=== PATIENT | female | born 1965 | race Caucasian/White ===

== ENCOUNTER 2017-05-10 14:00 | Outpatient (RCR) ==
--- NOTE | 2017-04-18 13:37 | RS.OPPTEV2 ---
Date of Note: 04/18/17 Visit #: 1 Date of Evaluation: 04/18/17 Payer Source: Insurance Treatment Diagnosis: Right LE symptoms, low back pain History of Condition/Mechanism of Injury:: Patient reports problems with her back since 2000. She had lumbar spinal fusion in 2000. Reports progressive right LE symptoms. Constant numbness has been in the right anterior thigh since February 2017. Prior Level of Function.....Patient was independent with: ADL's, Self Care, Caregiving, Ambulation/Mobility, Community Integration/Access Functional Limitations: Sleep, ADL's, Lifting, Sitting, Standing, Bending, Ambulation, Community Access/Integration Current Subjective/complaints:: Patient reports constant right LE symtpoms of numbness and hypersensitivity. States this is in the lateral, anterior, and medial right thigh. Reports no symptoms below the right knee. Also reports no symptoms in the left LE. States if she is on her feet a lot, she will notice weakness in the right LE. States she feels tightness in the low back. She was active with attending Yoga classes up until the last two months due to her symptoms. States the right LE radiating symptoms became constant following a Yoga class on February 19, 2017. Reports sleep is interrupted. States she has to change positions frequently. Medical History Medical History: Arthritis Surgical History: Hysterectomy Surgical History Comments:: Lumbar spinal fusion L4-5 and L5-S1 in 2000, Neck fusion with age hardware at C5-7 in 2008. Hx Home Medications: Hydrocodone, Flexeril, Imitrex, Ibuprofen Patient's Goals: Her goal is to get relief of right LE symptoms. Pain Assessment - Pain Description Pain Location: tightness in low back Current Pain Intensity: not quantified Functional Outcome Measure LE Functional Scale: 18 (18/80=77.5% impairment) - G Codes & Severity Modifier G Codes & Modifier: NA Source of G Code score: NA Observation - Observation Posture: Forward Head, Rounded Shoulders, Decreased Lumbar Lordosis Comments: Stands avoiding weight on right leg, with right knee slightly flexed. Gait - Gait Pattern Gait Comments: Ambulates independently with decreased stance on the right LE and maintains flexion at the knee during heel stike and foot flat. - ROM Lumbar Flexion: Hand reach to Mid-Shins Sidebending to Left: Reach to Lateral Joint Line Sidebending to Right: Reach to Lateral Joint Line Comments: Lumbar extension is 50% of normal range. Demonstrates hypomobility of the lumbar spine with lumbar flexion. - Strength Trunk Rotation: 4- Good- Comments: Left LE 5/5 throughout. Right hip flexion and ER 4-5, all else of right hip 4/5. Right quads and HS and ankle DF 4/5. - Special Tests DAMARIS Test: Negative Left, Negative Right SLR Test: Negative Left, Negative Right Seated Dural Stretch Test: Negative Left, Negative Right SI Joint Compression: Negative SI Joint Distraction: Negative Palpation Comments:: Patient reports no tenderness throughout the lumbar paraspinals, with central PA's along the lumbar spine to sacrum, or to either SI joint. Demonstrates no significant muscle guarding along the lumbar paraspinals. Sensation - Sensation Comments: Sensation along the right lateral and anterior thigh is numb and also described as hypersensitive. Reports intact sensation below the right knee and throughout the left LE. Additional Comments: Additional Comments: Right SLR in supine is to 35 degrees, left SLR to 45 degrees. Interventions - Exercise/Activities/Manual Therapy Exercises/Activities: Patient instructed in exercises to begin for home of HS and piriformis stretch, isometric hip flexion, and pelvic tilts. Manual Therapy: NA HOME EXERCISE PROGRAM: HS and piriformis stretch, isometric hip flexion, and pelvic tilts. - Charges Timed Code Treatment Minutes: 0 Total Treatment Time: 40 mins Procedures billed for this date of service:: JOSESITO Medium Assessment Assessment: Patient presents to therapy with a diagnosis of spinal stenosis of the lumbar region. She reports constant right thigh sensory impairment. Describes low back discomfort as mostly tightness. She exhibits weakness of the right LE, especially at the hip. Also exhibits flexibility imbalances between the LE's, with the right HS being tighter. She demonstrates potential to benefit from skilled therapy to address her symptoms and provide exercises and activities to balance LE strength and flexibility impairments. Patient Education: Education of diagnosis, Body/Joint mechanics, Home Exercise Program, Education of Plan of Care Rehab Potential: Good Short Term Goals Goal #1: Pt independent and compliant with HEP. Goal to be met by: 05/02/17 Goal #2: Right LE symptoms no longer constant. Goal to be met by: 05/02/17 Goal #3: Right SLR to 45 degrees in supine. Goal to be met by: 05/02/17 Snf Goals Goal #1: Pt knows HEP and to continue ex's to maintain functional level at D/C. Goal to be met by: 05/28/17 Goal #2: Score on FOM improved to <50% impairment. Goal to be met by: 05/28/17 Goal #3: Pt able to tolerate prolonged standing & walking with min. rad symptoms. Goal to be met by: 05/28/17 Goal #4: Pt able to sleep 6 hours w/o interruption from back or LE symptoms. Goal to be met by: 05/28/17 Plan - Treatment to be Provided Procedures: Therapeutic Exercises, Therapeutic Activity, Manual Therapy, Patient Education Modalities: Electrical Stimulation, Cryotherapy, Hot Packs - Treatment Plan Frequency: 2-3 X week Duration: 6 weeks ORDER # VISITS AND/OR THROUGH DATE: 05/28/17 - Treatment Code (1) Spinal stenosis of lumbar region without neurogenic claudication Code(s): M48.061 - SPINAL STENOSIS, LUMBAR REGION WITHOUT NEUROGENIC CHEMA Comments: M48.061 (2) Leg weakness Code(s): M62.81 - MUSCLE WEAKNESS (GENERALIZED) Qualifiers: Laterality: right Qualified Code(s): R29.898 - Other symptoms and signs involving the musculoskeletal system
--- NOTE | 2017-04-21 15:25 | RS.OPPTDN ---
Subjective Date of Note: 04/21/17 Visit #: 2 Date of Evaluation: 04/18/17 Payer Source: Insurance Treatment Diagnosis: Right LE symptoms, low back pain Current Subjective/complaints:: Patient states she is performing exercises as instructed. States she had a little discomfort into the right thigh during the isometric hip flexion. Interventions - Exercise/Activities/Manual Therapy Exercises/Activities: Patient received stretching to bilateral HS, piriformis, and anterior hips. Performs isometric trunk rotation, isometric hip flexion, SLR with 2# weights, bilateral shoulder flexion with wand in combo with alternate weighted hip flexion 2#, bridging. Manual Therapy: NA HOME EXERCISE PROGRAM: HS and piriformis stretch, isometric hip flexion, and pelvic tilts. - Charges Timed Code Treatment Minutes: 28 mins Total Treatment Time: 28 mins Procedures billed for this date of service:: EX2 Assessment: Patient tolerates all exercises without reports of pain. Demonstrates need for continue stretching of the right LE and stability exercises for the right hip and trunk. Patient Education: Education of diagnosis, Body/Joint mechanics, Home Exercise Program Patient demonstrates compliance with HEP?: Yes Short Term Goals Goal #1: Pt independent and compliant with HEP. Goal to be met by: 05/02/17 Progress towards Goal:: Progressing Goal #2: Right LE symptoms no longer constant. Goal to be met by: 05/02/17 Goal #3: Right SLR to 45 degrees in supine. 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 Goal to be met by: 05/28/17 Goal #2: Score on FOM improved to <50% impairment. Goal to be met by: 05/28/17 Goal #3: Pt able to tolerate prolonged standing & walking with min. rad symptoms. Goal to be met by: 05/28/17 Goal #4: Pt able to sleep 6 hours w/o interruption from back or LE symptoms. Goal to be met by: 05/28/17 Plan PLAN OF CARE EXPIRES ON:: 05/28/17 ORDER # VISITS AND/OR THROUGH DATE: 05/28/17 PLAN: Progress stretching and strengthening exercises as tolerated.
--- NOTE | 2017-04-27 09:09 | RS.CXNS ---
Date of scheduled appointment: 04/27/17 Type: Cancel Reason for Cancel/NS: inclement weather
--- NOTE | 2017-04-29 14:24 | RS.OPPTDN ---
Subjective Date of Note: 04/29/17 Visit #: 3 Date of Evaluation: 04/18/17 Payer Source: Insurance Treatment Diagnosis: Right LE symptoms, low back pain Current Subjective/complaints:: Patient reports her back is doing fine. States she has more tenderness at the medial portion of the right LE. Interventions - Exercise/Activities/Manual Therapy Exercises/Activities: Patient received stretching to bilateral HS, piriformis, lower trunk rotation, and figure 4 for anterior hips. Performs isometric trunk rotation, isometric hip flexion, SLR with 2# weights, bilateral shoulder flexion with wand in combo with alternate weighted hip flexion 2#, bridging, green theraband resisted hip abduction , and combo of bridging w/ resisted hip abduction using green band. Began wall slides X 10 reps. Advised to add wall slides to HEP. Total minutes of Exercise: 36 mins Manual Therapy: NA HOME EXERCISE PROGRAM: HS and piriformis stretch, isometric hip flexion, and pelvic tilts, wall slides - Objective Findings Observations,measurements,etc.: HS flexibility on the right is much improved. Demonstrates SLR to 55-60 degrees on the right. - Charges Timed Code Treatment Minutes: 36 mins Total Treatment Time: 36 mins Procedures billed for this date of service:: Ex2 Assessment: Patient reports low back continues to be fine. States she is having more tenderness at the medial region of the right thigh. She wonders if it could be do to the cold temperatures. She is performing her exercises at home and is very receptive to advice and added exercises. Patient Education: Education of diagnosis, Body/Joint mechanics Patient demonstrates compliance with HEP?: Yes Short Term Goals Goal #1: Pt independent and compliant with HEP. Goal to be met by: 05/02/17 Progress towards Goal:: Progressing Goal #2: Right LE symptoms no longer constant. Goal to be met by: 05/02/17 Goal #3: Right SLR to 45 degrees in supine. 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 Goal to be met by: 05/28/17 Goal #2: Score on FOM improved to <50% impairment. Goal to be met by: 05/28/17 Goal #3: Pt able to tolerate prolonged standing & walking with min. rad symptoms. Goal to be met by: 05/28/17 Goal #4: Pt able to sleep 6 hours w/o interruption from back or LE symptoms. Goal to be met by: 05/28/17 Plan PLAN OF CARE EXPIRES ON:: 05/28/17 ORDER # VISITS AND/OR THROUGH DATE: 05/28/17 PLAN: Continue with progression of lumbar stability and hip strengthening exercises.
--- NOTE | 2017-05-02 15:20 | RS.OPPTDN ---
Subjective Date of Note: 05/02/17 Visit #: 4 Date of Evaluation: 04/18/17 Payer Source: Insurance Treatment Diagnosis: Right LE symptoms, low back pain Current Subjective/complaints:: Patient reports she is working on HEP as instructed. Reports symptoms in the right anterior thigh is now a burning and tingling sensation. Interventions - Exercise/Activities/Manual Therapy Exercises/Activities: Patient received stretching to bilateral HS, piriformis, lower trunk rotation, and figure 4 for anterior hips. Performs isometric trunk rotation, isometric hip flexion. Increased to 3# for SLR , Alt hip flexion with 3# and 3# wand. Bridging. Green theraband resisted bilateral hip abduction. DKTC stretch. Large therapy ball for balancing while performing alt UE and LE lift offs, and wall slides 20 reps. Discussed planks, but did not add today. Total minutes of Exercise: 35mins Manual Therapy: NA HOME EXERCISE PROGRAM: HS and piriformis stretch, isometric hip flexion, and pelvic tilts, wall slides - Charges Timed Code Treatment Minutes: 35mins Total Treatment Time: 35mins Procedures billed for this date of service:: EX2 Assessment: Patient very motivated to progress with HEP. Patient Education: Home Exercise Program, Home Safety, Activity Modification Comments: Reviewed safety with daily activities and HEP. Patient demonstrates compliance with HEP?: Yes Short Term Goals Goal #1: Pt independent and compliant with HEP. Goal to be met by: 05/02/17 Progress towards Goal:: Progressing Goal #2: Right LE symptoms no longer constant. Goal to be met by: 05/02/17 Goal #3: Right SLR to 45 degrees in supine. Goal to be met by: 05/02/17 Progress towards Goal:: Met Usp Goals Goal #1: Pt knows HEP and to continue ex's to maintain functional level at D/C. Goal to be met by: 05/28/17 Goal #2: Score on FOM improved to <50% impairment. Goal to be met by: 05/28/17 Goal #3: Pt able to tolerate prolonged standing & walking with min. rad symptoms. Goal to be met by: 05/28/17 Goal #4: Pt able to sleep 6 hours w/o interruption from back or LE symptoms. Goal to be met by: 05/28/17 Plan PLAN OF CARE EXPIRES ON:: 05/28/17 ORDER # VISITS AND/OR THROUGH DATE: 05/28/17 PLAN: Progress with exercise to reduce pain and radicular symptoms.
--- NOTE | 2017-05-04 15:18 | RS.OPPTDN ---
Subjective Date of Note: 05/04/17 Visit #: 5 Date of Evaluation: 04/18/17 Payer Source: Insurance Treatment Diagnosis: Right LE symptoms, low back pain Current Subjective/complaints:: Patient reports she is working on HEP. States she has no back pain today. C/c is a discomfort with numbness and tingling in the right anterior thigh. Pain Assessment - Pain Description Pain Location: Right anterior thigh Pain Description: ache with some numbness and tingling Current Pain Intensity: 5/10 Interventions - Exercise/Activities/Manual Therapy Exercises/Activities: Patient received stretching to bilateral HS, piriformis, lower trunk rotation, and figure 4 for anterior hips. Performs isometric trunk rotation, isometric hip flexion. SLR , Alt hip flexion increased to 4# and 3# wand. Bridging. Green theraband resisted bilateral hip abduction. DKTC stretch. Large therapy ball for balancing while performing alt UE and LE lift offs, and wall slides 20 reps. Began green theraband for scapular retraction 2s/10reps, in standing. Total minutes of Exercise: 38mins Manual Therapy: NA HOME EXERCISE PROGRAM: HS and piriformis stretch, isometric hip flexion, and pelvic tilts, wall slides - Charges Timed Code Treatment Minutes: 38mins Total Treatment Time: 40mins Procedures billed for this date of service:: EX3 Assessment: Patient progressing with trunk strengthening exercise but continues to have symptoms in the right anterior thigh. Patient Education: Body/Joint mechanics, Home Exercise Program, Activity Modification Patient demonstrates compliance with HEP?: Yes Short Term Goals Goal #1: Pt independent and compliant with HEP. Goal to be met by: 05/02/17 Progress towards Goal:: Progressing Goal #2: Right LE symptoms no longer constant. Goal to be met by: 05/02/17 Goal #3: Right SLR to 45 degrees in supine. Goal to be met by: 05/02/17 Progress towards Goal:: Met Fullerette Goals Goal #1: Pt knows HEP and to continue ex's to maintain functional level at D/C. Goal to be met by: 05/28/17 Goal #2: Score on FOM improved to <50% impairment. Goal to be met by: 05/28/17 Goal #3: Pt able to tolerate prolonged standing & walking with min. rad symptoms. Goal to be met by: 02/17/18 Goal #4: Pt able to sleep 6 hours w/o interruption from back or LE symptoms. Goal to be met by: 05/28/17 Plan PLAN OF CARE EXPIRES ON:: 05/28/17 ORDER # VISITS AND/OR THROUGH DATE: 05/28/17 PLAN: Progress with exercise as indicated.
--- NOTE | 2017-05-06 16:20 | RS.CXNS ---
Date of scheduled appointment: 05/06/17 Type: Cancel (Patient called to cancel appointment today. States her leg is hurting more.)
--- NOTE | 2017-05-10 15:22 | RS.OPPTDN ---
Subjective Date of Note: 05/10/17 Visit #: 6 Date of Evaluation: 04/18/17 Payer Source: Insurance Treatment Diagnosis: Right LE symptoms, low back pain Current Subjective/complaints:: Patient reports she is working on HEP, but is not seeing progress with the numbness in the right distal anterior thigh. She agrees she will continue HEP but will stop therapy at this time. She will see her physician the first week of June for a follow-up. Pain Assessment - Pain Description Pain Location: Lowback and right thigh Current Pain Intensity: mod Other Comments regarding Pain:: Reports having pain but c/c is numbness in the distal right anterior thigh. Interventions - Exercise/Activities/Manual Therapy Exercises/Activities: Patient received stretching to bilateral HS, piriformis, lower trunk rotation, and figure 4 for anterior hips. Performs isometric trunk rotation, isometric hip flexion. SLR , Alt hip flexion with 4# to each ankle. Bridging. Green theraband resisted bilateral hip abduction and ankle df. Additional hamstring stretch. Large therapy ball for wall slides 20 reps. Continues green theraband for scapular retraction with HEP. Reveiwed HEP. Total minutes of Exercise: 50mins Manual Therapy: NA HOME EXERCISE PROGRAM: HS and piriformis stretch, isometric hip flexion, and pelvic tilts, wall slides - Charges Timed Code Treatment Minutes: 50mins Total Treatment Time: 50mins Procedures billed for this date of service:: EX3 Assessment: Patient has consistently progressed with trunk and LE strengthening exercises but has not seen progress with radicular symptoms. Patient Education: Body/Joint mechanics, Home Exercise Program Patient demonstrates compliance with HEP?: Yes Short Term Goals Goal #1: Pt independent and compliant with HEP. Goal to be met by: 05/02/17 Progress towards Goal:: Met Goal #2: Right LE symptoms no longer constant. Goal to be met by: 05/02/17 Progress towards Goal:: Not Met Goal #3: Right SLR to 45 degrees in supine. 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 Goal to be met by: 05/28/17 Progress towards goal: Met Goal #2: Score on FOM improved to <50% impairment. Goal to be met by: 05/28/17 Progress towards goal: No Change Goal #3: Pt able to tolerate prolonged standing & walking with min. rad symptoms. Goal to be met by: 05/28/17 Progress towards goal: No Change Goal #4: Pt able to sleep 6 hours w/o interruption from back or LE symptoms. Goal to be met by: 05/28/17 Progress towards goal: Progressing Plan PLAN OF CARE EXPIRES ON:: 05/28/17 ORDER # VISITS AND/OR THROUGH DATE: 05/28/17 PLAN: Discharge with HEP.
--- NOTE | 2017-05-10 15:24 | RS.QUICKDC ---
Discharge from PT Date of Discharge: 05/10/17 Number of Visits: 6 Reason for Discharge: Patient attended 6 session and was consistent with HEP. She reported no change in the radicular symptoms in the right LE. She agreed to continue HEP and be discharged at this time.
== END 2017-05-11 ==
PROVIDERS: ATTEND Nurse Practitioner
DX: M48.061 Spinal stenosis, lumbar region without neurogenic claudication (principal)